=== PATIENT | male | born 1965 | race Caucasian/White ===

== ENCOUNTER 2017-04-15 03:56 | Emergency (ER) | payer OTHER ==
[2017-04-15] MEDS ORDERED: fentaNYL 100 MCG/2 ML INJ IVP ONE (04:09)
[2017-04-15] MEDS ORDERED: NS 1,000 ML IV ONE (04:09)
[2017-04-15 04:10] VITALS: RESP 20; TEMP 98.2; O2SAT 95
--- NOTE | 2017-04-15 04:11 | EDPHY ---
H & P Time Seen by Provider: 04/15/17 04:02 HPI/ROS: CHIEF COMPLAINT: Right flank pain HPI: 51-year-old male presenting with right flank pain since yesterday evening. [place]. Patient does not have a history of similar pain in the past. Is about an 8/10. There are no aggravating or alleviating factors. Does not hurt to move around. Does radiate to the front of his abdomen little bit. No fevers or chills. No nausea or vomiting. No urinary urgency or frequency. Patient states he did run into a tree while skiing Saturday morning but did not have any pain after that all day Saturday or all day Saturday. He has been up pacing and cannot find a position of comfort. ROS: 10 point Review of Systems is negative except as noted in the HPI. PMH: Hypertension Social History: No smoking, occasional alcohol, no recreational drug use Family History: non-contributory Physical Exam: Gen: Awake, Alert, uncomfortable appearing HEENT: Nose: no rhinorrhea Eyes: PERRLA, EOMI Mouth: Moist mucosa Neck: Supple, no JVD Chest: nontender, lungs clear to auscultation Heart: S1, S2 normal, no murmur Abd: Soft, non-tender, no guarding Back: no CVA tenderness, no midline tenderness Ext: no edema, non-tender Skin: no rash Neuro: CN II-XII intact, Sensation grossly intact, Strength 5/5 in bilateral upper and lower extremities Constitutional: Initial Vital Signs Temperature (C) 36.8 C 04/15/17 04:06 Heart Rate 85 04/15/17 04:06 Respiratory Rate 20 04/15/17 04:06 Blood Pressure 171/110 H 04/15/17 04:06 O2 Sat (%) 95 04/15/17 04:06 O2 Delivery Mode Room Air Allergies/Adverse Reactions: No Known Allergies Allergy (Unverified 04/15/17 04:05) Home Medications: Medication Instructions Recorded Amlodipine Besylate 04/15/17 Atorvastatin Calcium 04/15/17 Tamsulosin HCl 0.4 mg PO DAILY #10 cap 04/15/17 Medical Decision Making - Diagnostics Imaging Results: CT scan shows a 5 mm proximal right ureteral stone with severe hydronephrosis and perinephric urine extravasation. Study interpreted by Dr. Werner. Imaging: Discussed imaging studies w/ liner machine operator helper Radiologist ED Course/Re-evaluation: 51-year-old male presenting with right ureteral stone with perinephric urine extravasation. He has not have pyuria. I have discussed with Dr. Ihsan Peñaloza, urology. He is recommending discharge the patient's pain is controlled the patient can go home and follow up as an outpatient. He is indicating that the urine extravasation is not uncommon is appropriate for the patient to be worked up as an outpatient.. Patient's pain is down to a 4 on 10. He would like to go home. Will discharge with analgesia on tamsulosin, follow up with Urology. Since the patient goes to [facility] I will refer him to follow up with , urology at [facility]. He will return for any worsening symptoms or concerns. - Data Points Laboratory Results: Laboratory Results 04/15/17 04:15 04/15/17 04:15 04/15/17 04/15/17 04/15/17 04:15 04:15 04:15 WBC 11.11 10^3/uL H 10^3/uL (3.80-9.50) RBC 5.13 10^6/uL 10^6/uL (4.40-6.38) Hgb 16.6 g/dL g/dL (13.7-17.5) Hct 47.4 % % (40.0-51.0) MCV 92.4 fL fL (81.5-99.8) MCH 32.4 pg pg (27.9-34.1) MCHC 35.0 g/dL g/dL (32.4-36.7) RDW 12.4 % % (11.5-15.2) Plt Count 258 10^3/uL 10^3/uL (150-400) MPV 10.5 fL fL (8.7-11.7) Neut % (Auto) 68.1 % % (39.3-74.2) Lymph % (Auto) 18.9 % % (15.0-45.0) Storey % (Auto) 10.1 % % (4.5-13.0) Eos % (Auto) 2.0 % % (0.6-7.6) Baso % (Auto) 0.6 % % (0.3-1.7) Nucleat RBC Rel Count 0.0 % % (0.0-0.2) Absolute Neuts (auto) 7.57 10^3/uL H 10^3/uL (1.70-6.50) Absolute Lymphs (auto) 2.10 10^3/uL 10^3/uL (1.00-3.00) Absolute Monos (auto) 1.12 10^3/uL H 10^3/uL (0.30-0.80) Absolute Eos (auto) 0.22 10^3/uL 10^3/uL (0.03-0.40) Absolute Basos (auto) 0.07 10^3/uL 10^3/uL (0.02-0.10) Absolute Nucleated RBC 0.00 10^3/uL 10^3/uL (0-0.01) Immature Gran % 0.3 % % (0.0-1.1) Immature Gran # 0.03 10^3/uL 10^3/uL (0.00-0.10) Sodium 140 mEq/L mEq/L (135-145) Potassium 4.5 mEq/L mEq/L (3.5-5.2) Chloride 104 mEq/L mEq/L (97-110) Carbon Dioxide 21 mEq/l L mEq/l (22-31) Anion Gap 15 mEq/L mEq/L (8-16) BUN 19 mg/dL mg/dL (7-23) Creatinine 1.2 mg/dL mg/dL (0.7-1.3) Estimated GFR > 60 Glucose 115 mg/dL H mg/dL (70-100) Calcium 9.9 mg/dL mg/dL (8.5-10.4) Urine Color YELLOW Urine Appearance CLEAR Urine pH 5.0 (5.0-7.5) Ur Specific Elysian 1.020 (1.002-1.030) Urine Protein NEGATIVE (NEGATIVE) Urine Ketones NEGATIVE (NEGATIVE) Urine Blood NEGATIVE (NEGATIVE) Urine Nitrate NEGATIVE (NEGATIVE) Urine Bilirubin NEGATIVE (NEGATIVE) Urine Urobilinogen NEGATIVE EU EU (0.2-1.0) Ur Leukocyte Esterase NEGATIVE (NEGATIVE) Urine Glucose NEGATIVE (NEGATIVE) Medications Given: Discontinued Medications Fentanyl (Sublimaze) 50 mcg IVP EDNOW ONE Stop: 01/29/18 04:10 Last Admin: 04/15/17 04:18 Dose: 50 mcg Sodium Chloride (Ns) 1,000 mls @ 0 mls/hr IV ONCE ONE; Wide Open PRN Reason: Protocol Stop: 04/15/17 04:10 Last Admin: 04/15/17 04:18 Dose: 1,000 mls Ketorolac Tromethamine (Toradol) 15 mg IVP EDNOW ONE Stop: 04/15/17 04:54 Last Admin: 04/15/17 04:56 Dose: 15 mg Departure - Departure Disposition: Home, Routine, Self-Care Clinical Impression: Kidney stone Condition: Good Instructions: Kidney Stones (ED), Hydrocodone/Acetaminophen (By mouth) Additional Instructions: Take ibuprofen, 600 mg 3 times a day as needed for pain. You may take hydrocodone with acetaminophen for breakthrough pain. Take tamsulosin daily to help facilitate passage of your stone. Follow up with Dr. Jackson, urology. Call today for the next available appointment. Return to the emergency department for increasing pain, fevers, chills, uncontrolled nausea or vomiting, or any other concerns. Referrals: Laura Jackson MD [Medical Doctor] - As per Instructions Prescriptions: Tamsulosin HCl 0.4 mg PO DAILY #10 cap
[2017-04-15 04:25] LABS: PLATELET COUNT 258 10^3/uL (150-400)
[2017-04-15] MEDS ORDERED: KETOROLAC 15 MG/1 ML SDV IVP ONE (04:53)
[2017-04-15] MEDS ORDERED: HYDROCOD/APAP 5/325 PREPACK#6 BTL TAKEHOME ONE (05:41)
[2017-04-15] MEDS ORDERED: TAMSULOSIN HCL 0.4 MG CAP PO ONE (05:41)
[2017-04-15 05:54] VITALS: BP 168/99; PULSE 72
== END 2017-04-15 05:56 | disposition home or self-care (01) ==
DX: N20.0 Calculus of kidney (principal); I10 Essential (primary) hypertension; E86.9 Volume depletion, unspecified
CPT/HCPCS: 96374; J1885; J3010

== ENCOUNTER → 2017-07-16 | Outpatient (CLI) | payer OTHER | LOC: BMCIMAGING 07:11 | PROVIDERS: ATTEND Urology | DX: Z87.442 Personal history of urinary calculi (principal) ==